=== PATIENT | female | born 1985 | race Caucasian/White ===

== ENCOUNTER 2019-06-08 14:40 | Emergency (ER) | payer SELFPAY ==
[~2019-06-08] VITALS: Ht 165.1 cm; Wt 80.0 kg
[2019-06-08 14:42] VITALS: BP 104/63
== END 2019-06-08 15:10 | disposition left against medical advice (07) ==
LOC: ER 14:55
DX: Z53.21 Procedure and treatment not carried out due to patient leaving prior to being seen by health care provider (principal); F41.9 Anxiety disorder, unspecified; F17.200 Nicotine dependence, unspecified, uncomplicated

== ENCOUNTER 2023-06-27 13:23 | Emergency (ER) | payer SELFPAY ==
[~2023-06-27] VITALS: Ht 162.6 cm; Wt 70.0 kg
[2023-06-27 13:28] VITALS: PULSE 94; RESP 18
[2023-06-27 13:37] VITALS: BP 142/72; TEMP 97.5; O2SAT 99
[2023-06-27] MEDS ORDERED: LIDOCAINE HCL/EPINEPHRINE 1%-EPI 1:100,000 20 ML VIAL INFIL ONE (15:00)
[2023-06-27] MEDS ORDERED: MORPHINE SULFATE 10 MG/ML CPJ IM ONE (15:00)
[2023-06-27] MEDS ORDERED: ONDANSETRON 4MG ODT PO ONE (15:00)
[2023-06-27] MEDS ORDERED: MORPHINE SULFATE 10 MG/ML CPJ IM NR (16:15)
[2023-06-27] MEDS ORDERED: HYDR-4001 MT (16:41)
[2023-06-27] MEDS ORDERED: LIDOCAINE HCL 1% 20ML VIAL (Pyxis) INJ INFIL ONE (17:00)
[2023-06-27] MEDS ORDERED: CEFTRIAXONE SODIUM 1 G/VIAL IM ONE (17:00)
[2023-06-27] MEDS ORDERED: DOXY100C5 MT (17:09)
[2023-06-27] MEDS ORDERED: AMOX1TAB16 MT (17:09)
[2023-06-27] MEDS ORDERED: IBUP-2029 MT (17:09)
== END 2023-06-27 18:09 | disposition home or self-care (01) ==
LOC: ER 13:23
DX: L02.412 Cutaneous abscess of left axilla (principal)
CPT/HCPCS: 81025; 87070; 87186; 87205; 87077; 10060; 96372; 99285; Q0162; J0696; J3490 ×2; J2270; Z7610 ×6